=== PATIENT | male | born 1955 | race Caucasian/White ===

== ENCOUNTER → 2017-08-17 | Outpatient (CLI) | payer OTHER ==
--- NOTE | 2017-08-17 14:23 | Diagnostic Imaging Report ---
INDICATION: COUGH, WT LOSS COMPARISON: 12/10/2013. FINDINGS: Frontal and lateral views of the chest demonstrate normal heart size and pulmonary vascularity. Evaluation of the lung burroughs suggest 7 mm micronodule within the lateral right mid to lower lung field. Otherwise, the lungs are clear. There is no focal consolidation, large effusion, nor pneumothorax. Bony structures show no gross acute abnormalities. Impression: 1. No evidence of failure or focal infiltrate. 2. Findings suspicious for 7 mm micronodule in the right lower lung field. Correlation with CT is recommended. Dictated by: Dictated on workstation # [id number]
== END ==
LOC: RAD 13:23
PROVIDERS: ATTEND Family Medicine
DX: R05 Cough (principal); R63.4 Abnormal weight loss; F17.200 Nicotine dependence, unspecified, uncomplicated
CPT/HCPCS: 71020

== ENCOUNTER → 2017-09-14 | Outpatient (CLI) | payer OTHER ==
--- NOTE | 2017-09-14 09:48 | Diagnostic Imaging Report ---
PROCEDURE: CT chest without contrast. TECHNIQUE: Multiple contiguous axial images were obtained through the chest without the use of intravenous contrast. INDICATION: Lung nodule. COMPARISON: There are no previous CT chest examinations available for comparison. The recent plain film examination of the chest performed on 08/17/2017 did raise the question of a 7 mm nodule overlying the right lung base. On this exam, however, there is no clear evidence for a parenchymal lung nodule in the right lower lobe. I suspect that the density seen on the chest exam was secondary to superimposition. The lungs are otherwise clear. There is no other parenchymal mass identified. There is no sign of failure, pneumonia, or pleural effusion to indicate an acute abnormality. The heart size is within normal limits. There are coronary artery calcifications evident. The aorta is not abnormally dilated. There is no obvious mediastinal or hilar adenopathy. The thyroid gland is generally unremarkable. The sections through the upper abdomen fail to show any sign of an acute abnormality. The bone windows are unremarkable for a fracture or for a destructive lesion. IMPRESSION: 1. There is no evidence for a parenchymal lung nodule in the right lower lobe to correspond to the density seen on the plain film exam. Most likely, the finding on the plain film exam was secondary to superimposition. 2. There is no acute cardiopulmonary abnormality noted. 3. The heart is not enlarged but there is coronary artery disease. Dictated by: Dictated on workstation # [id number]
== END ==
LOC: RAD 07:58
PROVIDERS: ATTEND Family Medicine
DX: I25.10 Atherosclerotic heart disease of native coronary artery without angina pectoris (principal)
CPT/HCPCS: 71250

== ENCOUNTER 2021-09-01 08:56 | Outpatient (CLI) | payer MEDICARE, OTHER ==
[~2021-09-01] VITALS: Ht 175.3 cm; Wt 88.1 kg
[2021-09-02] MEDS ORDERED: MULT-1052 PO (10:38)
[2021-09-02] MEDS ORDERED: FLUT9.9S NS (10:38)
== END 2021-09-02 14:23 | disposition home or self-care (01) ==
LOC: PREOP 08:56
PROVIDERS: ATTEND Internal Medicine
DX: Z01.818 Encounter for other preprocedural examination (principal)

== ENCOUNTER 2021-09-09 08:47 | Day surgery (SDC) | payer MEDICARE, OTHER ==
--- NOTE | 2021-09-02 07:06 | HISTORY AND PHYSICAL ---
DATE OF SERVICE: SCREENING COLONOSCOPY HISTORY AND PHYSICAL HISTORY OF PRESENT ILLNESS: The patient is a 66-year-old white male referred by Dr. Rivas for screening colonoscopy. He had one other screening colonoscopy done in [address] Dominguez that was reported on electronic medical record as being unremarkable with no evidence for neoplasia. The patient reports does have some intermittent small volume bright red blood per rectum, but he attributes to hemorrhoids, although none reported on previous colonoscopy. This has not changed, it happens every month or so, he has had no melena. Denies abdominal pain or change in bowel habit. He is not aware of any family history for colon cancer. He believes that his father did have a blood related malignancy that caused his in his 70s. The patient reports no past surgical history. The patient has a history of allergic rhinitis. He takes fayb-hgs-fufnato antihistamines and Flonase nasal spray with reasonable control of symptoms and mostly just during the fall and months. He does not utilize aspirin or nonsteroidal medication. SOCIAL HISTORY: The patient is retired, no past drinking history, does have a past smoking history of 30 pack years, approximate. He used to work in the [employer] department at [employer] [facility]. REVIEW OF SYSTEMS: CONSTITUTIONAL: Denies night sweats, chills, fever, change in weight. GASTROINTESTINAL: As noted in the HPI. PULMONARY: Denies cough, wheezing or shortness of breath. CARDIOVASCULAR: Denies orthopnea, PND, pedal edema, chest pain or syncope. PHYSICAL EXAMINATION: GENERAL: Reveals a pleasant white male, appears to be in no acute distress. VITAL SIGNS: Weight 194 pounds, blood pressure 120/72. HEENT: Unremarkable. Sclerae nonicteric. CHEST: Clear. CARDIOVASCULAR: Reveals a regular rate and rhythm without significant murmur, S3 or S4. ABDOMEN: Soft, supple without mass, organomegaly or tenderness. Bowel sounds positive. No bruits noted. EXTREMITIES: Reveal no cyanosis, clubbing or edema. ASSESSMENT AND PLAN: The patient is being set up for routine screening colonoscopy on 09/09/2021. Prep instructions with Suprep kit were given and questions were answered. Electronic medical record was reviewed today. I thank you for the referral of this pleasant gentleman. Job ID: [id number] DocumentID: [id number] Dictated Date: 08/15/2021 14:04:35 Consulting Group Analyst Date: 08/15/2021 14:37:16 Dictated By: SIMRAN LARA MD MTDD
[~2021-09-09] VITALS: Ht 175.3 cm; Wt 88.1 kg
[~2021-09-09 08:47] MED LIST: FLUT9.9S NS; MULT-1052 PO
[2021-09-09] MEDS ORDERED: LACTATED RINGERS 1,000 ML IV ONE (08:53)
[2021-09-09] MEDS ORDERED: LACTATED RINGERS 1,000 ML IV STA (08:58)
[2021-09-09] MEDS ORDERED: LIDOCAINE JELLY 2% 6 ML SYRINGE MM PRN (09:00)
[2021-09-09 09:23] VITALS: BP 129/84
--- NOTE | 2021-09-09 09:24 | Pre-Op Note & Conscious Sedat ---
Pre-Operative Progress Note H&P Reviewed The H&P was reviewed, patient examined and no changes noted. Date H&P Reviewed: Sep 09, 2021 Time H&P Reviewed: 09:24 Conscious Sedation Pre-Proced ASA Score 2 For ASA 3 and 4: Consider anesthesia and medical clearance. Also, for patients with a history of failed moderate sedation consider anesthesia. Airway Lungs Heart ASA score ASA 1: a normal healthy patient ASA 2: a patient with a mild systemic disease (mid diabetes, controlled hypertension, obesity ASA 3: a patient with a severe systemic disease that limits activity (angina, COPD, prior Myocardial infarction) ASA 4: a patient with an incapacitating disease that is a constant threat to life (CHF, renal failure) ASA 5: a moribund patient not expected to survive 24 hrs. (ruptured aneurysm) ASA 6: a declared brain- patient whose organs are being harvested. For emergent operations, add the letter E after the classification Mallampati Classification Grade 2 Sedation Plan Analgesia, Amnesia, Plan communicated to team members, Discussed options with patient/fam, Discussed risks with patient/fam The patient is an appropriate candidate to undergo the planned procedure, sedation, and anesthesia. The patient immediately re-assessed prior to indication. SIMRAN LARA MD Sep 09, 2021 09:24
[2021-09-09] MEDS ORDERED: PROPOFOL INJECTION 50 ML IV ONE (10:16)
[2021-09-09] MEDS ORDERED: proPOfol 200 MG/20 ML (DIPRIVAN) VIAL IV ONE (10:56)
[2021-09-09 11:06] VITALS: BP 110/59
--- NOTE | 2021-09-09 11:08 | Anesthesia-General Post-Op ---
MAC Patient Condition Mental Status/LOC: Same as Preop Cardiovascular: Satisfactory Nausea/Vomiting: Absent Respiratory: Satisfactory Pain: Controlled Complications: Absent Post Op Complications Complications None Follow Up Care/Instructions Patient Instructions None needed. Anesthesiology Discharge Order Discharge Order Patient is doing well, no complaints, stable vital signs, no apparent adverse anesthesia problems. No complications reported per nursing. TRIPP ALFARO CRNA Sep 09, 2021 11:08
[2021-09-09 11:15] VITALS: BP 100/51
[2021-09-09 11:16] VITALS: BP 112/58
[2021-09-09 11:45] VITALS: BP 131/85
[2021-09-09 11:54] VITALS: BP 131/85
--- NOTE | 2021-09-09 16:48 | OPERATIVE REPORT ---
DATE OF SERVICE: COLONOSCOPY SUMMARY INDICATION FOR THE PROCEDURE: Screening colonoscopy. DESCRIPTION PROCEDURE: The patient was placed in the left lateral decubitus position. Prior to undergoing colonoscopy, a digital rectal evaluation was performed. Anal sphincter tone was normal and the perianal reflexes intact. Prostate was normal in size and anodular on digital inspection. No abnormalities were noted on digital inspection of the anal canal or distal rectal vault. The colonoscope was then inserted into the rectum and under direct visualization advanced to the cecum. The cecum was identified by identification of ileocecal valve and cecal strap and appendiceal orifice. Photographic documentation was obtained. A careful inspection was made as the colonoscope was withdrawn. Quality of prep was good. FINDINGS: There was no evidence for internal or external hemorrhoids and the rectum was unremarkable. The patient had two large pedunculated polyps, first noted at 17 cm from the anal canal in the distal sigmoid colon and the other at 20 cm. Both were snared and removed via the basketing and submitted for histopathology. The larger one at 20 cm from the anal verge was roughly 3 cm and the smaller one at 2 cm. The sigmoid colon and descending colon were unremarkable. Present in the proximal transverse colon was a 6 mm sessile adenomatous appearing polyp. It was biopsied and ablated. There was more than the average amount of blood loss. So, an endoclip was placed with cessation of bleeding during observation. This was also done for the same reason with the same result on the larger polyp at 20 cm from the anal verge. Several small 2 to 3 mm sessile polyps were noted in the ascending colon that were left to be removed on followup; the cecum of the colon was unremarkable. ASSESSMENT: Three polyps were removed as noted above, one via hot forceps and the other two by snare, location in the distal sigmoid colon at 17 and 20 cm from the anal verge and the ablated polyp location in the proximal transverse colon. We will await histopathology report. Recommendation for no longer than one year screening interval, sooner, if there is evidence for severe dysplasia or malignancy. The patient was advised to abstain from nonsteroidal medication and aspirin over the next week. He reported that he had been taking some ibuprofen in the evening for arthritis related pain, which may have been why he had a little more than the average amount of bleeding post polypectomy today requiring endoclips as noted above. Thank you for the referral of this pleasant gentleman. Job ID: [id number] DocumentID: [id number] Dictated Date: 09/09/2021 11:42:47 Scrapper Date: 09/09/2021 16:47:47 Dictated By: SIMRAN LARA MD MTDD
== END 2021-09-09 11:54 | disposition home or self-care (01) ==
LOC: ENDO 08:47
PROVIDERS: ATTEND Internal Medicine
DX: Z12.11 Encounter for screening for malignant neoplasm of colon (principal); D12.3 Benign neoplasm of transverse colon; D12.5 Benign neoplasm of sigmoid colon; F17.210 Nicotine dependence, cigarettes, uncomplicated

== ENCOUNTER → 2022-09-07 | Outpatient (CLI) | payer MEDICARE | END | disposition home or self-care (01) | LOC: PREOP 05:37 | PROVIDERS: ATTEND Internal Medicine | DX: Z01.818 Encounter for other preprocedural examination (principal) ==

== ENCOUNTER → 2022-09-11 | Outpatient (CLI) | payer MEDICARE ==
[~2022-09-11] MED LIST changes: +ATOR20TA66 PO
== END ==
LOC: CARD 10:31
PROVIDERS: ATTEND Internal Medicine
DX: I51.7 Cardiomegaly (principal); I34.89 Other nonrheumatic mitral valve disorders
CPT/HCPCS: 93306

== ENCOUNTER 2022-09-15 08:11 | Day surgery (SDC) | payer MEDICARE ==
--- NOTE | 2022-09-07 06:57 | HISTORY AND PHYSICAL ---
COLONOSCOPY HISTORY AND PHYSICAL HISTORY OF PRESENT ILLNESS: The patient is a 67-year-old white male undergoing surveillance colonoscopy. I performed a colonoscopy on him one year ago, at which time he had three tubular adenomas removed. The most concerning was a sessile polyp measuring about 2 cm in size in the distal sigmoid colon approximately 20 cm from the anal verge. He is undergoing surveillance colonoscopy. He reports no difficulty with the procedure. He has noted no blood in the stool. Has had no weight change, abdominal pain or change in bowel habit. There have been no changes in his medical history since I last saw him. PHYSICAL EXAMINATION: GENERAL: Reveals a white male who appeared to be in no acute distress. HEENT: Unremarkable. Sclerae nonicteric. ABDOMEN: Soft, supple without mass, organomegaly, or tenderness. CHEST: Clear to auscultation. CARDIOVASCULAR: Reveals a regular rate and rhythm with a mid systolic blowing murmur heard best at the apex with transmission to the axilla. No S3 or S4 noted. No diastolic murmurs appreciated. He reports that he was told at least as an early adult that he had a heart murmur. He has been referred by Dr. Rivas's nurse practitioner. ASSESSMENT AND PLAN: The patient is being set up for surveillance colonoscopy due to history of adenomatous colonic polyps, largest one from the distal sigmoid at 20 cm from the anal verge. Prep instructions were given and questions were answered. I did take the liberty considering murmur of mitral insufficiency and no previous reports of echocardiogram, I am setting one up just to make sure that it is not significant enough to have a negative impact on cardiac function. Thank you referral for this pleasant gentleman. CC: Dr. Rivas ? requested, unable to deliver Job ID: [id number] DocumentID: [id number] Dictated Date: 09/04/2022 16:08:49 Retail Area Manager Date: 09/04/2022 17:04:00 Dictated By: SIMRAN LARA MD
[~2022-09-15] VITALS: Ht 175 cm; Wt 81.8 kg
[2022-09-15] MEDS ORDERED: LACTATED RINGERS 1,000 ML IV STA (08:23)
[2022-09-15 08:41] VITALS: BP 126/80
--- NOTE | 2022-09-15 08:54 | Pre-Op Note & Conscious Sedat ---
Pre-Operative Progress Note Date H&P Reviewed: Sep 15, 2022 Time H&P Reviewed: 08:53 History & Physical: H&P Reviewed, Patient Examed, No changes noted Pre-Op Diagnosis: screening Conscious Sedation Pre-Proced ASA Score 2 For ASA 3 and 4: Consider anesthesia and medical clearance. Also, for patients with a history of failed moderate sedation consider anesthesia. Airway Lungs Heart ASA score ASA 1: a normal healthy patient ASA 2: a patient with a mild systemic disease (mid diabetes, controlled hypertension, obesity ASA 3: a patient with a severe systemic disease that limits activity (angina, COPD, prior Myocardial infarction) ASA 4: a patient with an incapacitating disease that is a constant threat to life (CHF, renal failure) ASA 5: a moribund patient not expected to survive 24 hrs. (ruptured aneurysm) ASA 6: a declared brain- patient whose organs are being harvested. For emergent operations, add the letter E after the classification Mallampati Classification Grade 2 Sedation Plan Analgesia, Amnesia, Plan communicated to team members, Discussed options with patient/fam, Discussed risks with patient/fam The patient is an appropriate candidate to undergo the planned procedure, sedation, and anesthesia. The patient immediately re-assessed prior to indication. SIMRAN LARA MD Sep 15, 2022 08:54
[2022-09-15] MEDS ORDERED: PROPOFOL INJECTION 50 ML IV ONE (09:28)
[2022-09-15] MEDS ORDERED: MIDAZOLAM 2 MG/2 ML (VERSED) VIAL ONE (09:28)
[2022-09-15 10:05] VITALS: BP 133/62
--- NOTE | 2022-09-15 10:09 | Progress Note-Post Operative ---
Post-Procedure Note Physician (s)/Cable Operator (s) Physician SIMRAN LARA MD Pre-Procedure Diagnosis Pre-Procedure Diagnosis: screening Post-Procedure Diagnosis Post-operative diagnosis: Anal sphincter tone was normal and the perianal reflexes intact. No abnormalities noted on digital section anal canal or distal rectal vault. The prostate was unremarkable on digital inspection. Colonoscope was then inserted into the rectum and under direct visualization advanced the cecum. The cecum was identified by identification of the ileocecal valve and the cecal strap. Photographic documentation was obtained. A careful inspection was made as the colonoscope was withdrawn. Quality the prep was fair. Findings: 1 grade 1 internal hemorrhoid complex was noted the rectum was otherwise unremarkable. Present in the distal sigmoid colon 25 cm from anal verge was in inflammatory type appearing polyp it was friable with no induration was biopsied and cauterized in several locations with no bleeding. Several small sigmoid diverticulum were present. No other sigmoid colonic adenopathy appreciated. There is no evidence to suggest acute diverticulitis. The descending colon and splenic flexure were unremarkable. 2 adjacent 4 mm sessile transverse polyps were noted both were biopsied and ablated with no subsequent blood loss. Present hepatic flexure as well as in the proximal ascending colon were 2 similar adenomatous appearing polyps 4 to 5 mm in size both were biopsied and ablated with hot forceps with no blood loss. The cecum was unremarkable. Assessment there was no evidence for the larger distal sigmoid abdomen no mass polyp removed last year. Patient did have an inflammatory appearing polyp in the distal sigmoid colon as well as 4 other small sessile adenomatous appearing polyps 2 in the proximal transverse colon 1 at hepatic flexure and one in the proximal ascending colon. As long as there are no surprises on histopathology report would advocate repeat surveillance colonoscopy in 1 year. 2. Patient did have 2/6 systolic ejection murmur compatible with mitral regurgitation and was sent for an echo which revealed mitral valve prolapse with mild to moderate insufficiency no evidence for left atrial dilatation no evidence for pulmonary artery hypertension with normal LV systolic function as I recall and ejection fraction around 60%. Findings were discussed with the patient. copy the report was faxed to Dr. Rivas's office. Discussed current recommendation did not advise antibiotic prophylaxis for dental procedures etc. I thank you for the furl this pleasant gentleman sincerely, Simran Lara MD. CC: Dr. Jevon Rivas. SIMRAN LARA MD Sep 15, 2022 10:09
[2022-09-15 10:10] VITALS: BP 148/60
[2022-09-15 10:15] VITALS: BP 132/63
[2022-09-15 10:48] VITALS: BP 132/63
--- NOTE | 2022-09-15 11:49 | Anesthesia-General Post-Op ---
MAC Patient Condition Mental Status/LOC: Same as Preop Cardiovascular: Satisfactory Nausea/Vomiting: Absent Respiratory: Satisfactory Pain: Controlled Complications: Absent Post Op Complications Complications None Follow Up Care/Instructions Patient Instructions None needed. Anesthesiology Discharge Order Discharge Order Patient is doing well, no complaints, stable vital signs, no apparent adverse anesthesia problems. No complications reported per nursing. OSVALDO SAAVEDRA CRNA Sep 15, 2022 11:49
== END 2022-09-15 10:57 | disposition home or self-care (01) ==
LOC: ENDO 08:11
PROVIDERS: ATTEND Internal Medicine
DX: Z12.11 Encounter for screening for malignant neoplasm of colon (principal); D12.3 Benign neoplasm of transverse colon; D12.2 Benign neoplasm of ascending colon; K63.5 Polyp of colon; F17.210 Nicotine dependence, cigarettes, uncomplicated
CPT/HCPCS: 88305